=== PATIENT | female | born 1965 | race Caucasian/White ===

== ENCOUNTER → 2022-05-12 14:21 | Outpatient (BNVA) | payer OTHER, SELFPAY | PROVIDERS: Visit Provider Internal Medicine | DX: S83.91XD Sprain of unspecified site of right knee, subsequent encounter (principal); W01.0XXD Fall on same level from slipping, tripping and stumbling without subsequent striking against object, subsequent encounter; Z91.81 History of falling | CPT/HCPCS: 73564; 99203 ==